=== PATIENT | female | born 1995 | race Caucasian/White ===

== ENCOUNTER 2021-05-06 10:41 | Emergency (ER) | payer OTHER ==
[~2021-05-06] VITALS: Ht 170.2 cm; Wt 99.8 kg
--- NOTE | 2021-05-06 11:03 | NUR ---
DR Mcrae at the bedside for MSE.
[2021-05-06] MEDS ORDERED: IBUPROFEN 800 MG TABLET PO ONE (11:15)
[2021-05-06] MEDS ORDERED: IBUPROFEN 800 MG TABLET ONE (11:16)
[2021-05-06 11:40] LABS: HEMATOCRIT 39.5 % (31.2-41.9); MEAN CORPUSCULAR HEMOGLOBIN 28.1 uug (24.7-32.8); MEAN CORPUSCULAR VOLUME 84.5 fL (75.5-95.3); PLATELET COUNT (AUTO) 218 K/uL (179-408)
[2021-05-06 11:43] LABS: CREATININE 0.6 mg/dL (0.6-1.3); POTASSIUM 4.6 mmol/L (3.5-5.1)
[2021-05-06 11:46] LABS: MAGNESIUM 2.1 mg/dL (1.8-2.4); PHOSPHOROUS 4.1 mg/dL (2.5-4.9)
[2021-05-06 12:02] LABS: BILIRUBIN,DIRECT 0.1 mg/dL (0.0-0.2); BILIRUBIN,TOTAL 0.2 mg/dL (0.2-1.0); TOTAL PROTEIN, SERUM 7.1 g/dL (6.4-8.2)
[2021-05-06 12:11] LABS: *URINE HCG, QUAL NEG (NEGATIVE)
[2021-05-06 12:17] LABS: *BILIRUBIN,URIN NEGATIVE (NEGATIVE); *CLARITY,URINE CLEAR (CLEAR); *COLOR,URINE LIGHT YELLOW (YELLOW); *KETONES,URINE NEGATIVE (NEGATIVE); *UROBILINOGEN,URINE 0.2 E.U./dl (NORMAL); LEUKOCYTE ESTERASE ,URINE NEGATIVE (NEGATIVE); NITRITE, URINE NEGATIVE (NEGATIVE); PH,URINE 7.5 (5.0-8.0); UGLUCOSE NEGATIVE (NEGATIVE)
[2021-05-06 12:22] LABS: *BLOOD, URINE TRACE (NEGATIVE)
[2021-05-06] MEDS ORDERED: IBUP-1957 PO (12:36)
--- NOTE | 2021-05-06 12:45 | NUR ---
Patient discharged to home in stable condition. Written and verbal after care instructions given. Patient verbalizes understanding of instructions. Stressed follow up or return to ER for worsening s/s.
[2021-05-06 12:50] VITALS: BP 121/60
[2021-05-06 14:44] LABS: BACTERIA,URINE NONE SEEN /HPF (NONE SEEN); SQUAMOUS EPITHELIAL CELL,UR MODERATE /HPF (NONE SEEN); WBC,URINE 0-3 /HPF (0-3)
== END 2021-05-06 12:47 | disposition home or self-care (01) ==
LOC: ER 10:41
DX: I49.3 Ventricular premature depolarization (principal); R07.2 Precordial pain; R00.2 Palpitations; E66.9 Obesity, unspecified; Z68.30 Body mass index [BMI] 30.0-30.9, adult; F90.9 Attention-deficit hyperactivity disorder, unspecified type; Z79.899 Other long term (current) drug therapy
CPT/HCPCS: 36415; 70030-TC; 71046; 83690; 83735; 84100; 84703; 85025; 93005; A4663